=== PATIENT | female | born 1975 | race Caucasian/White ===

== ENCOUNTER → 2021-11-18 | Outpatient (REF) | payer OTHER | LOC: M LAB REF 14:03 | PROVIDERS: ATTEND Physician Assistant | DX: L82.1 Other seborrheic keratosis (principal) ==

== ENCOUNTER → 2022-03-24 | Outpatient (CLI) | payer OTHER ==
[2022-03-24 15:52] LABS: ALBUMIN 3.9 GM/DL (3.2-5.2); BLOOD UREA NITROGEN 8 MG/DL (7-18); CALCIUM LEVEL 8.9 MG/DL (8.5-10.1); CARBON DIOXIDE LEVEL 29 MEQ/L (21-32); CHLORIDE LEVEL 105 MEQ/L (98-107); CREATININE FOR GFR 0.74 MG/DL (0.55-1.30); GLOMERULAR FILTRATION RATE > 60.0 (>58); GLUCOSE, FASTING 90 MG/DL (70-100); PHOSPHORUS LEVEL 2.3 MG/DL (2.5-4.9); POTASSIUM SERUM 3.8 MEQ/L (3.5-5.1); RHEUMATOID FACTOR QUANT < 10.0 IU/ML (<15.0); SODIUM LEVEL 139 MEQ/L (136-145)
[2022-03-24 15:56] LABS: FOLATE 15.1 NG/ML; TOTAL 25(OH) VITAMIN D 38.1 NG/ML (30.0-100.0); VITAMIN B12 LEVEL 340 PG/ML
== END ==
LOC: M PLALAB 13:31
PROVIDERS: ATTEND Psychiatry & Neurology Neurology
DX: R53.1 Weakness (principal); R42 Dizziness and giddiness; R51.9 Headache, unspecified

== ENCOUNTER 2022-05-15 21:01 | Emergency (ER) | payer BC, OTHER ==
[~2022-05-15] VITALS: Ht 165.1 cm; Wt 98.4 kg
[~2022-05-15 21:01] MED LIST: AMIT10TA7 PO; LEVO175T2 PO; VITA100093 PO
[2022-05-15] MEDS ORDERED: CHLO125TA PO (21:33)
[2022-05-15] MEDS ORDERED: SPIR-10 PO (21:33)
[2022-05-16 03:45] VITALS: BP 119/75
== END 2022-05-16 03:59 | disposition home or self-care (01) ==
LOC: M ED 21:01
DX: I10 Essential (primary) hypertension (principal); F41.9 Anxiety disorder, unspecified; F10.10 Alcohol abuse, uncomplicated; Z79.899 Other long term (current) drug therapy

== ENCOUNTER → 2022-05-25 | Outpatient (CLI) | payer BC, OTHER ==
[~2022-05-25] MED LIST changes: +CHLO125TA PO; +SPIR-10 PO
[2022-05-25 10:25] LABS: BASO # 0.1 10^3/uL (0.0-0.2); EOS # 0.4 10^3/uL (0.0-0.5); EOS % 5.3 % (0.0-3.0); HEMATOCRIT 39.4 % (36.0-47.0); LYMPH # 2.1 10^3/uL (1.5-5.0); LYMPH % 28.2 % (24.0-44.0); MEAN CORPUSCULAR HEMOGLOBIN 28.6 pg (27.0-33.0); MEAN CORPUSCULAR VOLUME 86.6 fl (80.0-96.0); MONO # 0.5 10^3/uL (0.0-0.8); MONO % 7.1 % (2.0-8.0); NEUTROPHILS # 4.3 10^3/uL (1.5-8.5); NEUTROPHILS % 58.3 % (36.0-66.0); PLATELET COUNT, AUTOMATED 278 10^3/uL (150-450); RED BLOOD COUNT 4.55 10^6/uL (4.00-5.40); WHITE BLOOD COUNT 7.3 10^3/uL (4.0-10.0)
[2022-05-25 10:52] LABS: ERYTHROCYTE SEDIMENTATION RATE 5 mm/hr (0-20)
[2022-05-25 11:00] LABS: ALBUMIN 3.7 GM/DL (3.2-5.2); ALT/SGPT 30 U/L (12-78); BILIRUBIN,TOTAL 0.2 MG/DL (0.2-1.0); BLOOD UREA NITROGEN 14 MG/DL (7-18); CALCIUM LEVEL 8.7 MG/DL (8.5-10.1); CARBON DIOXIDE LEVEL 29 MEQ/L (21-32); CHLORIDE LEVEL 106 MEQ/L (98-107); CREATININE FOR GFR 0.76 MG/DL (0.55-1.30); GLOMERULAR FILTRATION RATE > 60.0 (>58); GLUCOSE, FASTING 111 MG/DL (70-100); NT-PRO BNP 80 PG/ML (<125); POTASSIUM SERUM 4.1 MEQ/L (3.5-5.1); RHEUMATOID FACTOR QUANT < 10.0 IU/ML (<15.0); SODIUM LEVEL 139 MEQ/L (136-145); THYROID STIMULATING HORMONE 0.148 uIU/ML (0.358-3.740); TOTAL PROTEIN 6.9 GM/DL (6.4-8.2)
[2022-05-26 14:08] LABS: ANTINUCLEAR ANTIBODIES DIRECT Negative (Negative)
== END ==
LOC: M WUC 08:26
PROVIDERS: ATTEND Internal Medicine Cardiovascular Disease
DX: R53.82 Chronic fatigue, unspecified (principal); M79.10 Myalgia, unspecified site; R00.2 Palpitations; R03.0 Elevated blood-pressure reading, without diagnosis of hypertension; E06.3 Autoimmune thyroiditis

== ENCOUNTER → 2022-05-25 | Outpatient (CLI) | payer BC, OTHER ==
[2022-05-25 10:51] LABS: THYROID STIMULATING HORMONE 0.163 uIU/ML (0.358-3.740)
[2022-05-25 11:40] LABS: TOTAL 25(OH) VITAMIN D 46.7 NG/ML (30.0-100.0)
== END ==
LOC: M WUC 08:23
DX: E55.9 Vitamin D deficiency, unspecified (principal); E66.9 Obesity, unspecified; I68.0 Cerebral amyloid angiopathy; E03.8 Other specified hypothyroidism; L68.0 Hirsutism

== ENCOUNTER → 2022-07-05 | Outpatient (CLI) | payer BC, OTHER | LOC: M SLEEP HO 13:04 | PROVIDERS: ATTEND Internal Medicine Cardiovascular Disease | DX: J98.4 Other disorders of lung (principal); R06.02 Shortness of breath; R53.82 Chronic fatigue, unspecified ==

== ENCOUNTER → 2022-12-07 | Outpatient (REF) | payer BC, OTHER ==
[2022-12-07 14:25] LABS: BASO # 0.1 10^3/uL (0.0-0.2); BASO % 0.9 % (0.0-1.0); EOS # 0.2 10^3/uL (0.0-0.5); EOS % 2.6 % (0.0-3.0); HEMATOCRIT 39.1 % (36.0-47.0); HEMOGLOBIN 12.8 g/dl (12.0-15.5); LYMPH # 1.8 10^3/uL (1.5-5.0); LYMPH % 23.2 % (24.0-44.0); MEAN CORPUSCULAR HEMOGLOBIN 28.3 pg (27.0-33.0); MEAN CORPUSCULAR HGB CONC 32.7 g/dl (32.0-36.5); MEAN CORPUSCULAR VOLUME 86.5 fl (80.0-96.0); MONO # 0.4 10^3/uL (0.0-0.8); MONO % 5.2 % (2.0-8.0); NEUTROPHILS # 5.2 10^3/uL (1.5-8.5); PLATELET COUNT, AUTOMATED 312 10^3/uL (150-450); RED BLOOD COUNT 4.52 10^6/uL (4.00-5.40); WHITE BLOOD COUNT 7.7 10^3/uL (4.0-10.0)
[2022-12-07 15:40] LABS: HIV 1&2 SCREEN CENTAUR NEGATIVE (NEGATIVE)
== END ==
LOC: M LAB REF 12:36
PROVIDERS: ATTEND Advanced Practice Midwife
DX: Z01.419 Encounter for gynecological examination (general) (routine) without abnormal findings (principal)

== ENCOUNTER → 2023-05-05 | Outpatient (CLI) | payer BC, OTHER | LOC: M RAD 06:41 | PROVIDERS: ATTEND Nurse Practitioner Family | DX: R10.31 Right lower quadrant pain (principal); K76.0 Fatty (change of) liver, not elsewhere classified ==

== ENCOUNTER → 2023-05-09 | Outpatient (CLI) | payer BC, OTHER | LOC: M RAD 15:36 | PROVIDERS: ATTEND Nurse Practitioner Family | DX: R10.31 Right lower quadrant pain (principal) ==

== ENCOUNTER → 2023-05-17 | Outpatient (CLI) | payer BC, OTHER ==
[2023-05-17 12:45] LABS: BASO # 0.1 10^3/uL (0.0-0.2); BASO % 0.8 % (0.0-1.0); EOS # 0.3 10^3/uL (0.0-0.5); EOS % 3.4 % (0.0-3.0); HEMATOCRIT 39.7 % (36.0-47.0); HEMOGLOBIN 12.8 g/dl (12.0-15.5); LYMPH # 2.3 10^3/uL (1.5-5.0); MEAN CORPUSCULAR HEMOGLOBIN 28.3 pg (27.0-33.0); MEAN CORPUSCULAR HGB CONC 32.2 g/dl (32.0-36.5); MEAN CORPUSCULAR VOLUME 87.6 fl (80.0-96.0); MONO # 0.5 10^3/uL (0.0-0.8); MONO % 5.9 % (2.0-8.0); NEUTROPHILS # 5.3 10^3/uL (1.5-8.5); NEUTROPHILS % 62.7 % (36.0-66.0); PLATELET COUNT, AUTOMATED 260 10^3/uL (150-450); RED BLOOD COUNT 4.53 10^6/uL (4.00-5.40); WHITE BLOOD COUNT 8.5 10^3/uL (4.0-10.0)
[2023-05-17 13:09] LABS: URIC ACID 4.3 MG/DL (3.1-7.8)
[2023-05-17 13:11] LABS: RHEUMATOID FACTOR QUANT < 3.5 IU/ML (<14)
[2023-05-17 13:12] LABS: C REACTIVE PROTEIN QUANTITATIV < 0.40 MG/DL (<1.0)
[2023-05-17 13:13] LABS: ALBUMIN 4.2 G/DL (3.2-5.2); ALKALINE PHOSPHATASE 82 U/L (46-116); ALT/SGPT 23 U/L (7.0-40); AST/SGOT 11 U/L (<34); BILIRUBIN,TOTAL 0.6 MG/DL (0.3-1.2); BLOOD UREA NITROGEN 10 MG/DL (9-23); CARBON DIOXIDE LEVEL 26 MMOL/L (20-31); CHLORIDE LEVEL 105 MMOL/L (98-107); CREATININE FOR GFR 0.73 MG/DL (0.55-1.30); GLOMERULAR FILTRATION RATE > 60.0 (>58); GLUCOSE, FASTING 93 MG/DL (60-100); POTASSIUM SERUM 4.2 MMOL/L (3.5-5.1); SODIUM LEVEL 137 MMOL/L (136-145); TOTAL PROTEIN 6.9 G/DL (5.7-8.2)
[2023-05-17 15:48] LABS: ERYTHROCYTE SEDIMENTATION RATE 6 mm/hr (0-20)
[2023-05-18 21:08] LABS: ANTINUCLEAR ANTIBODIES DIRECT Negative (Negative); CYCLIC CITRULLINATED PEPTIDE 4 units (0-19); SJOGREN'S ANTI SS-A <0.2 AI (0.0-0.9); SJOGREN'S ANTI SS-B <0.2 AI (0.0-0.9)
== END ==
LOC: M WUC 09:41
PROVIDERS: ATTEND Nurse Practitioner Family
DX: M12.9 Arthropathy, unspecified (principal); M25.512 Pain in left shoulder

== ENCOUNTER 2023-07-05 11:01 | Emergency (ER) | payer BC, OTHER ==
[~2023-07-05] VITALS: Ht 165.1 cm; Wt 95.1 kg
[2023-07-05] MEDS ORDERED: MILK175C6 PO (11:42)
[2023-07-05] MEDS ORDERED: OMEP-173 (11:50)
[2023-07-05 13:00] LABS: BASO # 0.1 10^3/uL (0.0-0.2); BASO % 0.6 % (0.0-1.0); EOS % 0.4 % (0.0-3.0); HEMATOCRIT 40.7 % (36.0-47.0); HEMOGLOBIN 13.8 g/dl (12.0-15.5); LYMPH # 2.2 10^3/uL (1.5-5.0); LYMPH % 20.4 % (24.0-44.0); MEAN CORPUSCULAR HEMOGLOBIN 28.7 pg (27.0-33.0); MEAN CORPUSCULAR HGB CONC 33.9 g/dl (32.0-36.5); MEAN CORPUSCULAR VOLUME 84.6 fl (80.0-96.0); MONO # 0.6 10^3/uL (0.0-0.8); MONO % 5.7 % (2.0-8.0); NEUTROPHILS # 7.9 10^3/uL (1.5-8.5); NEUTROPHILS % 72.6 % (36.0-66.0); PLATELET COUNT, AUTOMATED 357 10^3/uL (150-450); RED BLOOD COUNT 4.81 10^6/uL (4.00-5.40); WHITE BLOOD COUNT 10.9 10^3/uL (4.0-10.0)
[2023-07-05 13:30] LABS: ALBUMIN 4.6 G/DL (3.2-5.2); ALKALINE PHOSPHATASE 84 U/L (46-116); ALT/SGPT 19 U/L (7.0-40); AST/SGOT < 8 U/L (<34); BILIRUBIN,DIRECT 0.3 MG/DL (<0.4); BILIRUBIN,TOTAL 0.9 MG/DL (0.3-1.2); BLOOD UREA NITROGEN 6 MG/DL (9-23); CARBON DIOXIDE LEVEL 28 MMOL/L (20-31); CHLORIDE LEVEL 102 MMOL/L (98-107); CREATININE FOR GFR 0.69 MG/DL (0.55-1.30); GLOMERULAR FILTRATION RATE > 60.0 (>58); GLUCOSE, FASTING 101 MG/DL (60-100); POTASSIUM SERUM 3.8 MMOL/L (3.5-5.1); SODIUM LEVEL 139 MMOL/L (136-145); TOTAL PROTEIN 8.1 G/DL (5.7-8.2)
[2023-07-05] MEDS: LORazepam 2 MG/ML 1ML VIAL IV STA (14:28)
[2023-07-05 14:40] LABS: CK-MB VALUE MASS < 1.0 NG/ML (<3.6)
[2023-07-05 14:42] LABS: CPK CREATINE PHOSPHOKINASE 147 U/L (34-145); MB/CK RELATIVE INDEX 0.68 (< OR =4)
[2023-07-05 14:44] LABS: THYROID STIMULATING HORMONE 7.539 uIU/ML (0.55-4.78)
[2023-07-05 14:45] LABS: FREE T4 1.27 NG/DL (0.89-1.76)
[2023-07-05] MEDS ORDERED: HYDR50TA70 PO (16:24)
[2023-07-05 16:48] VITALS: BP 161/98; TEMP 97.1; O2SAT 98
== END 2023-07-05 17:12 | disposition home or self-care (01) ==
LOC: M ED 11:01
DX: F41.9 Anxiety disorder, unspecified (principal); I10 Essential (primary) hypertension; E03.9 Hypothyroidism, unspecified; R51.9 Headache, unspecified; F10.10 Alcohol abuse, uncomplicated; Z88.8 Allergy status to other drugs, medicaments and biological substances; Z79.83 Long term (current) use of bisphosphonates; Z79.899 Other long term (current) drug therapy
CPT/HCPCS: 36415; 80048; 80076; 82550; 82553; 84439; 84443; 84484; 85025; 93005; 96374; 99285; J2060

== ENCOUNTER → 2023-07-07 | Outpatient (CLI) | payer BC, OTHER ==
[~2023-07-07] MED LIST changes: +HYDR50TA70 PO; +MILK175C6 PO; +OMEP-173
== END ==
LOC: M WHC 14:12
PROVIDERS: ATTEND Obstetrics & Gynecology
DX: Z12.31 Encounter for screening mammogram for malignant neoplasm of breast (principal)

== ENCOUNTER → 2023-07-25 | Outpatient (CLI) | payer BC, OTHER | LOC: M WHC 10:38 | PROVIDERS: ATTEND Nurse Practitioner Family | DX: M54.50 Low back pain, unspecified (principal) ==

== ENCOUNTER → 2023-08-10 | Outpatient (CLI) | payer BC, OTHER | LOC: M RAD 09:08 | PROVIDERS: ATTEND Nurse Practitioner Family | DX: R07.9 Chest pain, unspecified (principal); M54.50 Low back pain, unspecified ==

== ENCOUNTER → 2023-08-10 | Outpatient (CLI) | payer BC, OTHER | LOC: M RAD 09:06 | PROVIDERS: ATTEND Obstetrics & Gynecology | DX: N92.1 Excessive and frequent menstruation with irregular cycle (principal); R10.2 Pelvic and perineal pain ==

== ENCOUNTER → 2023-08-15 | Outpatient (CLI) | payer BC, OTHER ==
[2023-08-15 18:18] LABS: FOLLICLE STIMULATING HORMONE 4.4 mIU/ML; LUTEINIZING HORMONE 3.3 mIU/ML
== END ==
LOC: M WUC 12:07
PROVIDERS: ATTEND Obstetrics & Gynecology
DX: N92.1 Excessive and frequent menstruation with irregular cycle (principal)

== ENCOUNTER 2023-11-16 11:37 | Day surgery (SDC) | payer BC, OTHER ==
[~2023-11-16] VITALS: Ht 162.6 cm; Wt 99.8 kg
[~2023-11-16 11:37] MED LIST changes: +LEVO150T7 PO
[2023-11-16] MEDS ORDERED: LR 1,000 ML IV SCH (12:00)
[2023-11-16 12:26] LABS: HEMATOCRIT 38.2 % (36.0-47.0); HEMOGLOBIN 12.5 g/dl (12.0-15.5); MEAN CORPUSCULAR HEMOGLOBIN 26.7 pg (27.0-33.0); MEAN CORPUSCULAR HGB CONC 32.7 g/dl (32.0-36.5); MEAN CORPUSCULAR VOLUME 81.6 fl (80.0-96.0); PLATELET COUNT, AUTOMATED 288 10^3/uL (150-450); RED BLOOD COUNT 4.68 10^6/uL (4.00-5.40); WHITE BLOOD COUNT 9.8 10^3/uL (4.0-10.0)
[2023-11-16] MEDS ORDERED: fentaNYL 100 MCG/2 ML INJECTION As Ordered ONE (13:13)
[2023-11-16] MEDS ORDERED: MIDAZOLAM INJ 2MG/2ML VIAL As Ordered ONE (13:13)
[2023-11-16] MEDS ORDERED: LIDOCAINE 2% 100MG/5ML SDV (FOR ANES.) As Ordered ONE (13:13)
[2023-11-16] MEDS ORDERED: propofoL 200 MG/20 ML VIAL As Ordered ONE (13:14)
[2023-11-16] MEDS ORDERED: ONDANSETRON 4MG 2ML VIAL As Ordered ONE (13:14)
[2023-11-16] MEDS ORDERED: ACETAMINOPHEN 1000MG 100ML IV BAG As Ordered ONE (14:18)
[2023-11-16] MEDS ORDERED: IBUP80TA PO (14:51)
[2023-11-16] MEDS ORDERED: MORPHINE 2 MG/ML 1ML VIAL IV PRN (15:05)
[2023-11-16] MEDS ORDERED: fentaNYL 100 MCG/2 ML INJECTION IV PRN (15:05)
[2023-11-16] MEDS ORDERED: ONDANSETRON 4MG 2ML VIAL IV PRN (15:05)
[2023-11-16] MEDS ORDERED: oxyCODONE 5MG TAB PO PRN (15:05)
[2023-11-16 16:10] VITALS: BP 140/84; TEMP 98.2; O2SAT 98
== END 2023-11-16 16:20 | disposition home or self-care (01) ==
LOC: M SDC 11:37
PROVIDERS: ATTEND Obstetrics & Gynecology
DX: N93.9 Abnormal uterine and vaginal bleeding, unspecified (principal); N84.0 Polyp of corpus uteri; E03.9 Hypothyroidism, unspecified; I10 Essential (primary) hypertension; Z79.899 Other long term (current) drug therapy; Z79.890 Hormone replacement therapy; K76.0 Fatty (change of) liver, not elsewhere classified; Z86.16 Personal history of COVID-19; Z88.7 Allergy status to serum and vaccine; Z88.8 Allergy status to other drugs, medicaments and biological substances; Z87.891 Personal history of nicotine dependence
CPT/HCPCS: 36415; 58563; 58579; 81025; 85027; 86850; 86900; 86901; 88300; 88305; J0131; J1100; J2250; J2405; J3010

== ENCOUNTER 2024-01-19 06:16 | Emergency (ER) | payer BC, OTHER ==
[~2024-01-19] VITALS: Ht 162.6 cm; Wt 96.5 kg
[~2024-01-19 06:16] MED LIST changes: +IBUP80TA PO
[2024-01-19 08:36] LABS: BASO % 0.4 % (0.0-1.0); EOS % 0.2 % (0.0-3.0); HEMATOCRIT 39.3 % (36.0-47.0); HEMOGLOBIN 13.1 g/dl (12.0-15.5); LYMPH # 0.6 10^3/uL (1.5-5.0); MEAN CORPUSCULAR HEMOGLOBIN 27.6 pg (27.0-33.0); MEAN CORPUSCULAR HGB CONC 33.3 g/dl (32.0-36.5); MEAN CORPUSCULAR VOLUME 82.7 fl (80.0-96.0); MONO # 0.6 10^3/uL (0.0-0.8); MONO % 6.6 % (2.0-8.0); NEUTROPHILS # 7.2 10^3/uL (1.5-8.5); NEUTROPHILS % 85.6 % (36.0-66.0); PLATELET COUNT, AUTOMATED 293 10^3/uL (150-450); RED BLOOD COUNT 4.75 10^6/uL (4.00-5.40); WHITE BLOOD COUNT 8.5 10^3/uL (4.0-10.0)
[2024-01-19] MEDS: ACETAMINOPHEN 500 MG TAB PO ONE (08:41)
[2024-01-19 09:05] LABS: LIPASE 40 U/L (12-53)
[2024-01-19 09:07] LABS: ALBUMIN 4.1 G/DL (3.2-5.2); ALKALINE PHOSPHATASE 94 U/L (46-116); ALT/SGPT 11 U/L (7.0-40); AST/SGOT < 8 U/L (<34); BILIRUBIN,DIRECT 0.3 MG/DL (<0.4); TOTAL PROTEIN 7.1 G/DL (5.7-8.2)
[2024-01-19] MEDS ORDERED: ISOVUE-370 76% 100ML VIAL As Ordered ONE (09:57)
[2024-01-19 10:56] VITALS: BP 111/57; TEMP 97.9; O2SAT 16
== END 2024-01-19 11:01 | disposition home or self-care (01) ==
LOC: M ED 06:16
DX: R10.9 Unspecified abdominal pain (principal); K30 Functional dyspepsia; M25.511 Pain in right shoulder; M25.512 Pain in left shoulder; I10 Essential (primary) hypertension; E03.9 Hypothyroidism, unspecified; Z88.7 Allergy status to serum and vaccine; Z88.8 Allergy status to other drugs, medicaments and biological substances; Z86.16 Personal history of COVID-19; Z79.899 Other long term (current) drug therapy
CPT/HCPCS: 36415; 74177; 76705; 80047; 80076; 81001; 83605; 83690; 84702; 85025; 86618; 87040; 87486; 87581; 87633; 87798; 87880; 99284; Q9967

== ENCOUNTER → 2024-01-31 | Outpatient (REF) | payer OTHER ==
[2024-01-31 12:57] LABS: C REACTIVE PROTEIN QUANTITATIV < 0.40 MG/DL (<1.0)
[2024-01-31 12:59] LABS: CPK CREATINE PHOSPHOKINASE 50 U/L (34-145); FOLATE 23.56 NG/ML (>5.4); IRON (FE) 79 UG/DL (50-170); PERCENT SATURATION 22.9 % (13.2-45.0); PHOSPHORUS LEVEL 2.5 MG/DL (2.5-4.9); TOTAL 25(OH) VITAMIN D 40.2 NG/ML (20.0-100.0); TOTAL IRON BINDING CAPACITY 345 UG/DL (250-425)
[2024-01-31 13:01] LABS: VITAMIN B12 LEVEL 512 PG/ML (211-911)
[2024-01-31 13:09] LABS: BASO # 0.1 10^3/uL (0.0-0.2); BASO % 0.8 % (0.0-1.0); EOS # 0.1 10^3/uL (0.0-0.5); HEMATOCRIT 38.9 % (36.0-47.0); HEMOGLOBIN 12.4 g/dl (12.0-15.5); LYMPH # 1.4 10^3/uL (1.5-5.0); LYMPH % 22.2 % (24.0-44.0); MEAN CORPUSCULAR HEMOGLOBIN 26.8 pg (27.0-33.0); MEAN CORPUSCULAR HGB CONC 31.9 g/dl (32.0-36.5); MEAN CORPUSCULAR VOLUME 84.2 fl (80.0-96.0); MONO # 0.4 10^3/uL (0.0-0.8); MONO % 5.9 % (2.0-8.0); NEUTROPHILS # 4.4 10^3/uL (1.5-8.5); NEUTROPHILS % 68.6 % (36.0-66.0); PLATELET COUNT, AUTOMATED 326 10^3/uL (150-450); RED BLOOD COUNT 4.62 10^6/uL (4.00-5.40); WHITE BLOOD COUNT 6.5 10^3/uL (4.0-10.0)
[2024-01-31 13:38] LABS: ERYTHROCYTE SEDIMENTATION RATE 14 mm/hr (0-20)
[2024-02-01 14:13] LABS: EBV AB TO NUCLEAR ANTIGEN >600.0 U/mL (0.0-17.9); EBV VIRAL CAPSID AG IgG 99.7 U/mL (0.0-17.9); EBV VIRAL CAPSID AG IgM 94.9 U/mL (0.0-35.9)
== END ==
LOC: M SFHCRHEU 10:42
PROVIDERS: ATTEND Internal Medicine
DX: M79.10 Myalgia, unspecified site (principal); M25.50 Pain in unspecified joint; R53.82 Chronic fatigue, unspecified

== ENCOUNTER → 2024-02-16 | Outpatient (CLI) | payer BC, OTHER | LOC: M WUC 14:15 | PROVIDERS: ATTEND Nurse Practitioner Family | DX: Z77.018 Contact with and (suspected) exposure to other hazardous metals (principal) ==

== ENCOUNTER → 2024-04-11 | Outpatient (REF) | payer BC | LOC: M SFHCPLAZ 11:44 | PROVIDERS: ATTEND Student in an Organized Health Care Education/Training Program | DX: Z76.89 Persons encountering health services in other specified circumstances (principal); E03.8 Other specified hypothyroidism; E55.9 Vitamin D deficiency, unspecified; Z13.1 Encounter for screening for diabetes mellitus; R25.3 Fasciculation ==

== ENCOUNTER → 2024-04-12 | Outpatient (CLI) | payer BC ==
[2024-04-12 16:19] LABS: BASO # 0.1 10^3/uL (0.0-0.2); BASO % 0.9 % (0.0-1.0); EOS # 0.1 10^3/uL (0.0-0.5); EOS % 1.5 % (0.0-3.0); HEMATOCRIT 39.1 % (36.0-47.0); HEMOGLOBIN 12.5 g/dl (12.0-15.5); LYMPH # 2.3 10^3/uL (1.5-5.0); LYMPH % 27.8 % (24.0-44.0); MEAN CORPUSCULAR HEMOGLOBIN 27.2 pg (27.0-33.0); MONO # 0.5 10^3/uL (0.0-0.8); MONO % 5.7 % (2.0-8.0); NEUTROPHILS # 5.3 10^3/uL (1.5-8.5); NEUTROPHILS % 63.9 % (36.0-66.0); PLATELET COUNT, AUTOMATED 295 10^3/uL (150-450); WHITE BLOOD COUNT 8.2 10^3/uL (4.0-10.0)
[2024-04-12 16:24] LABS: ALBUMIN 4.2 G/DL (3.2-5.2); ALKALINE PHOSPHATASE 84 U/L (46-116); ALT/SGPT 16 U/L (7.0-40); AST/SGOT 12 U/L (<34); BILIRUBIN,TOTAL 0.6 MG/DL (0.3-1.2); BLOOD UREA NITROGEN 12 MG/DL (9-23); CALCIUM LEVEL 9.4 MG/DL (8.5-10.1); CARBON DIOXIDE LEVEL 29 MMOL/L (20-31); CHLORIDE LEVEL 104 MMOL/L (98-107); CHOLESTEROL LEVEL 203 MG/DL (<200); CHOLESTEROL RISK RATIO 3.89 (<5); CREATININE FOR GFR 0.71 MG/DL (0.55-1.30); GLOMERULAR FILTRATION RATE > 60.0 (>58); GLUCOSE, FASTING 91 MG/DL (60-100); HDL CHOLESTEROL 52.1 MG/DL (>40); LDL CHOLESTEROL 126.3 MG/DL (<100); MAGNESIUM LEVEL 2.1 MG/DL (1.8-2.4); NON-HDL-C 150.9 MG/DL; POTASSIUM SERUM 4.4 MMOL/L (3.5-5.1); SODIUM LEVEL 138 MMOL/L (136-145); TRIGLYCERIDES LEVEL 123 MG/DL (<150)
[2024-04-12 16:26] LABS: FREE T4 1.23 NG/DL (0.89-1.76); THYROID STIMULATING HORMONE 0.706 uIU/ML (0.55-4.78)
[2024-04-12 18:49] LABS: CORTISOL AM 7.3 UG/DL (4.3-22.4)
[2024-04-12 19:18] LABS: HIV 1&2 SCREEN NEGATIVE (NEGATIVE)
[2024-04-12 19:26] LABS: HEPATITIS C VIRUS ABY INDEX < 0.02 INDEX (<0.8)
[2024-04-12 19:46] LABS: HEMOGLOBIN A1c 5.3 % (4.0-6.0)
== END ==
LOC: M PLALAB 11:51
PROVIDERS: ATTEND Student in an Organized Health Care Education/Training Program
DX: E03.8 Other specified hypothyroidism (principal); E55.9 Vitamin D deficiency, unspecified; R25.3 Fasciculation; R53.82 Chronic fatigue, unspecified; Z76.89 Persons encountering health services in other specified circumstances; Z13.1 Encounter for screening for diabetes mellitus

== ENCOUNTER → 2024-06-27 | Outpatient (CLI) | payer BC | LOC: M PLALAB 15:19 | PROVIDERS: ATTEND Internal Medicine | DX: E53.8 Deficiency of other specified B group vitamins (principal) ==

== ENCOUNTER → 2024-07-09 | Outpatient (CLI) | payer BC | LOC: M WHC 12:27 | PROVIDERS: ATTEND Obstetrics & Gynecology | DX: Z12.31 Encounter for screening mammogram for malignant neoplasm of breast (principal) ==

== ENCOUNTER → 2024-10-13 | Outpatient (CLI) | payer BC ==
[~2024-10-13] MED LIST changes: +LEVO137T2 PO; +LISI5TAB11 PO; +PERC5TAB12 PO
== END ==
LOC: M EKG 09:57
PROVIDERS: ATTEND Anesthesiology
DX: Z01.818 Encounter for other preprocedural examination (principal)

== ENCOUNTER 2024-10-17 08:28 | Day surgery (SDC) | payer BC ==
[~2024-10-17] VITALS: Ht 162.6 cm; Wt 99.1 kg
[~2024-10-17 08:28] MED LIST changes: -PERC5TAB12 PO
[2024-10-17 09:23] LABS: HEMATOCRIT 38.5 % (36.0-47.0); HEMOGLOBIN 12.8 g/dl (12.0-15.5); MEAN CORPUSCULAR HGB CONC 33.2 g/dl (32.0-36.5); MEAN CORPUSCULAR VOLUME 87.1 fl (80.0-96.0); PLATELET COUNT, AUTOMATED 309 10^3/uL (150-450); RED BLOOD COUNT 4.42 10^6/uL (4.00-5.40); WHITE BLOOD COUNT 7.1 10^3/uL (4.0-10.0)
[2024-10-17] MEDS: NS 1,000 ML IV SCH (09:35)
[2024-10-17 09:42] LABS: BLOOD UREA NITROGEN 12 MG/DL (9-23); CALCIUM LEVEL 9.3 MG/DL (8.5-10.1); CARBON DIOXIDE LEVEL 26 MMOL/L (20-31); CHLORIDE LEVEL 105 MMOL/L (98-107); CREATININE FOR GFR 0.81 MG/DL (0.55-1.30); GLOMERULAR FILTRATION RATE > 60.0 (>58); GLUCOSE, FASTING 100 MG/DL (60-100); POTASSIUM SERUM 4.3 MMOL/L (3.5-5.1); SODIUM LEVEL 139 MMOL/L (136-145)
[2024-10-17] MEDS ORDERED: ROCURONIUM BROMIDE 50MG/5ML VIAL As Ordered ONE (10:13)
[2024-10-17] MEDS ORDERED: ONDANSETRON 4MG 2ML VIAL As Ordered ONE (10:13)
[2024-10-17] MEDS ORDERED: LIDOCAINE 2% 100MG/5ML SDV (FOR ANES.) As Ordered ONE (10:13)
[2024-10-17] MEDS ORDERED: MIDAZOLAM INJ 2MG/2ML VIAL As Ordered ONE (10:13)
[2024-10-17] MEDS ORDERED: propofoL 200 MG/20 ML VIAL As Ordered ONE (10:13)
[2024-10-17] MEDS ORDERED: SUGAMMADEX SODIUM 500 MG/5 ML VIAL (BRIDION) As Ordered ONE (10:13)
[2024-10-17] MEDS ORDERED: ACETAMINOPHEN 1000MG/100ML IV BAG As Ordered ONE (10:13)
[2024-10-17] MEDS ORDERED: fentaNYL 100 MCG/2 ML INJECTION As Ordered ONE (10:14)
[2024-10-17] MEDS ORDERED: PERC5TAB12 PO (10:58)
[2024-10-17] MEDS: ceFAZolin SOD 2 GM in IV 1 EA IV ONE (11:15)
[2024-10-17] MEDS: FLUORESCEIN 10% (100MG/ML) 5ML VIAL As Ordered ONE (12:20)
[2024-10-17] MEDS ORDERED: KETOROLAC 60MG 2ML VIAL As Ordered ONE (12:33)
[2024-10-17] MEDS ORDERED: SEVOFLURANE INHAL SOLN 250 ML BTL As Ordered ONE (12:42)
[2024-10-17] MEDS ORDERED: METOCLOPRAMIDE INJ 10MG/2ML VIAL IV PRN (12:50)
[2024-10-17] MEDS ORDERED: diphenhydrAMINE 50MG/ML VIAL IV PRN (12:50)
[2024-10-17] MEDS ORDERED: fentaNYL 100 MCG/2 ML INJECTION IV PRN (12:50)
[2024-10-17] MEDS ORDERED: MEPERIDINE 25 MG/ML 1ML VIAL IV PRN (12:50)
[2024-10-17] MEDS ORDERED: HYDROMORPHONE HCL 0.5 MG/ 0.5 ML SYRINGE IV PRN (12:50)
[2024-10-17] MEDS: oxyCODONE 5MG TAB PO PRN (13:34)
[2024-10-17] MEDS: ONDANSETRON 4MG 2ML VIAL IV PRN (13:53)
[2024-10-17] MEDS ORDERED: PERCOCET 5MG/325MG TAB PO PRN (14:20)
[2024-10-17] MEDS ORDERED: LR 1,000 ML IV SCH (14:20)
[2024-10-17 14:45] VITALS: BP 113/64; TEMP 98.2; O2SAT 98
[2024-10-17] MEDS ORDERED: SIMETHICONE 80MG CHEW TAB PO SCH (18:00)
[2024-10-17] MEDS ORDERED: IBUPROFEN 800 MG TAB PO SCH (18:00)
== END 2024-10-17 15:15 | disposition home or self-care (01) ==
LOC: M SDC 08:28
PROVIDERS: ATTEND Obstetrics & Gynecology
DX: N80.03 Adenomyosis of the uterus (principal); D25.9 Leiomyoma of uterus, unspecified; N88.8 Other specified noninflammatory disorders of cervix uteri; N93.9 Abnormal uterine and vaginal bleeding, unspecified
CPT/HCPCS: 36415; 58571; 80048; 81025; 85027; 86850; 86900; 86901; 88307; J0131; J0665; J0690; J1100; J1885; J2250; J2405; J3010; S2900

== ENCOUNTER → 2024-11-23 | Outpatient (REF) | payer OTHER ==
[~2024-11-23] MED LIST changes: +PERC5TAB12 PO
[2024-11-23 18:26] LABS: FREE T4 1.16 NG/DL (0.89-1.76); THYROID STIMULATING HORMONE 13.388 uIU/ML (0.55-4.78)
== END ==
LOC: M PLALAB 17:28
PROVIDERS: ATTEND Hospitalist
DX: E06.3 Autoimmune thyroiditis (principal)

== ENCOUNTER 2025-08-29 09:19 | Emergency (ER) | payer BC ==
[~2025-08-29] VITALS: Ht 165.1 cm; Wt 94.6 kg
[~2025-08-29 09:19] MED LIST changes: -AMLO1TAB24; -LEVO150T7
[2025-08-29] MEDS ORDERED: AMLO1TAB24 (09:39)
[2025-08-29] MEDS ORDERED: LEVO150T7 (09:39)
[2025-08-29 12:41] VITALS: BP 143/68; TEMP 98.3; O2SAT 100
== END 2025-08-29 12:45 | disposition home or self-care (01) ==
LOC: M ED 09:19
DX: J02.9 Acute pharyngitis, unspecified (principal); Z86.16 Personal history of COVID-19; Z88.7 Allergy status to serum and vaccine; Z91.048 Other nonmedicinal substance allergy status; Z79.899 Other long term (current) drug therapy

== ENCOUNTER → 2025-08-29 | Outpatient (CLI) | payer BC ==
[~2025-08-29] MED LIST changes: +AMIT10TA11 PO; -AMIT10TA7 PO; +AMLO1TAB24; +LEVO150T7
[2025-08-29 10:47] LABS: IRON (FE) 57.0 UG/DL (50-170)
[2025-08-29 10:49] LABS: TOTAL 25(OH) VITAMIN D 34.4 NG/ML (20.0-100.0)
[2025-08-29 10:50] LABS: FREE T4 1.68 NG/DL (0.89-1.76); VITAMIN B12 LEVEL 435.0 PG/ML (211-911)
== END ==
LOC: M PLALAB 08:50
PROVIDERS: ATTEND Internal Medicine
DX: E06.3 Autoimmune thyroiditis (principal); R53.83 Other fatigue; E04.1 Nontoxic single thyroid nodule; E55.9 Vitamin D deficiency, unspecified

== ENCOUNTER → 2025-11-01 | Outpatient (CLI) | payer BC ==
[~2025-11-01] MED LIST changes: +AMLO1TAB24; +LEVO150T7
[2025-11-01 17:17] LABS: INR 0.96
[2025-11-01 18:29] LABS: PLATELET COUNT, AUTOMATED 307 10^3/uL (150-450)
[2025-11-01 18:55] LABS: C REACTIVE PROTEIN QUANTITATIV < 0.50 MG/DL (<1.0); CPK CREATINE PHOSPHOKINASE 63 U/L (34-145)
[2025-11-01 18:58] LABS: FREE T4 1.45 NG/DL (0.89-1.76)
[2025-11-07 10:52] LABS: VITAMIN C, ASCORBIC ACID 0.6 mg/dL (0.3-2.7)
[2025-11-10 00:33] LABS: Antimyeloperxidase(MPO) Abs < 1.0 AI (<1.0)
[2025-11-11 00:44] LABS: ANCA SCREEN REFLEX Negative (Negative)
== END ==
LOC: M WUC 15:22
PROVIDERS: ATTEND Family Medicine
DX: K06.8 Other specified disorders of gingiva and edentulous alveolar ridge (principal); M79.10 Myalgia, unspecified site